=== PATIENT | female | born 2000 | race Two or more races ===

== ENCOUNTER 2022-01-20 22:52 | Emergency (ER) | payer SELFPAY ==
[~2022-01-20] VITALS: Ht 157.5 cm; Wt 54.0 kg
--- NOTE | 2022-01-20 23:21 | PHYS DOC ---
Past Medical History Past Medical History: No Pertinent History Past Surgical History: No Surgical History Smoking Status: Never Smoker Alcohol Use: None General Adult EDM: Chief Complaint: VAGINAL BLEEDING HPI: HPI: 21-year-old female, no significant past medical/surgical/allergy history, currently 4 months , G1, P0, presents with 1 day of pelvic cramping as well as vaginal spotting. No trauma. Denies any other complaints. No fever, chills, nausea, vomiting, chest pain, shortness of breath. No back pain. No dysuria. Normal BMs. Review of Systems: Review of Systems: Constitutional: Denies fever or chills. [] Eyes: Denies change in visual acuity. [] HENT: Denies nasal congestion or sore throat. [] Respiratory: Denies cough or shortness of breath. [] Cardiovascular: Denies chest pain or edema. [] GI: Denies abdominal pain, nausea, vomiting, bloody stools or diarrhea. [] : +vaginal spotting, Denies dysuria. [] Musculoskeletal: Denies back pain or joint pain. [] Integument: Denies rash. [] Neurologic: Denies headache, focal weakness or sensory changes. [] Endocrine: Denies polyuria or polydipsia. [] Lymphatic: Denies swollen glands. [] Psychiatric: Denies depression or anxiety. [] Heart Score: C/O Chest Pain: No Risk Factors: Risk Factors: DM, Current or recent (<one month) smoker, HTN, HLP, family history of CAD, obesity. Risk Scores: Score 0 - 3: 2.5% MACE over next 6 weeks - Discharge Home Score 4 - 6: 20.3% MACE over next 6 weeks - Admit for Clinical Observation Score 7 - 10: 72.7% MACE over next 6 weeks - Early Invasive Strategies Physical Exam: PE: Constitutional: Well developed, well nourished, no acute distress, non-toxic appearance. [] HENT: Normocephalic, atraumatic, bilateral external ears normal, oropharynx moist, no oral exudates, nose normal. [] Eyes: PERRLA, EOMI, conjunctiva normal, no discharge. [] Neck: Normal range of motion, no tenderness, supple, no stridor. [] Cardiovascular:Heart rate regular rhythm, no murmur [] Lungs & Thorax: Bilateral breath sounds clear to auscultation [] Abdomen: Bowel sounds normal, soft, no tenderness, no masses, no pulsatile masses. [] Skin: Warm, dry, no erythema, no rash. [] Back: No tenderness, no CVA tenderness. [] Extremities: No tenderness, no cyanosis, no clubbing, ROM intact, no edema. [] Neurologic: Alert and oriented X 3, normal motor function, normal sensory function, no focal deficits noted. [] Psychologic: Affect normal, judgement normal, mood normal. [] Current Patient Data: Vital Signs: Vital Signs Date Time Temp Pulse Resp B/P (MAP) Pulse Ox O2 Delivery O2 Flow Rate FiO2 01/20/22 23:06 98.0 72 18 124/87 (99) 100 Room Air 98.0 EKG: EKG: [] Radiology/Procedures: Radiology/Procedures: [] Course & Med Decision Making: Course & Med Decision Making Pertinent Labs and Imaging studies reviewed. (See chart for details) Additional Social History: PMD from non-affiliated facility. Patient Lives at home. Family History: Non-pertinent to today's complaint. Nursing Notes Reviewed Previous Medical Records requested via [facility] Web: Reviewed by me. EMERGENT LABS AND DIAGNOSTIC STUDIES: Results were reviewed and interpreted by me as below PROCEDURE: OB LIMITED IMPRESSION: 1. Single live anterior at 18 weeks 4 days gestational age by LMP has appropriate size by ultrasound. 2. No abnormality identified. A short-term follow-up study could be performed if clinically indicated. EMERGENCY DEPARTMENT COURSE/ MEDICAL DECISION MAKING: The patient was placed on a cardiac rn, continuous pulse oximetry and was given supplemental oxygen. I examined the patient, evaluated and addressed patient's chief complaint. Found to have live IUP ~18 weeks. Labs largely unremarkable. Vitals wnl. Well appearing. Abd soft NTND. On re-assessment, patient feels much better. Stable for dc home with routine pmd/OBGYN scheduled f/u. Strict return precautions given. The patient understands that todays Emergency Department evaluation does not re present a comprehensive medical workup, and it is impossible to diagnose all possible illnesses from a single Emergency Department visit. The patient verbalized understanding that it is absolutely necessary to have follow-up with regular primary care physician within 1-2 days for more detailed workup and continued exam. I explained the findings and plan to the patient, who expressed verbal understanding and agreed with plan for discharge and follow up. The patient was given after care instructions and welcomed to return to the ED for re-evaluation in 8-12 hours, especially for any new or worsening symptoms. Patient's blood pressure was elevated (>120/80) but appears stable without evidence of end organ damage, malignant hypertension, hypertensive emergency or urgency. The patient was counseled about the risks of hypertension and urged to pursue outpatient monitoring and therapy within a week with their primary care physician. The patient was stable at the time of discharge. DIAGNOSTIC IMPRESSION: 1. Vaginal bleeding in 2nd trimester DISPOSITION: Disposition: Discharge Home. Condition: Improved Follow-Up: PMD, OBGYN Prescriptions: None Return to the Emergency Department for new or worsening symptoms. Dragon Disclaimer: Chela Disclaimer: This electronic medical record was generated, in whole or in part, using a voice recognition dictation system. Departure Departure Impression: Primary Impression: Second trimester bleeding Additional Impressions: Vaginal spotting Second trimester Disposition: HOME / SELF CARE / HOMELESS Condition: LORE ADAME MD January 20, 2022 23:21
[2022-01-20 23:52] LABS: BASO % 1 % (0-3); EOS # 0.2 x10^3/uL (0.0-0.7); EOS % 2 % (0-3); HEMATOCRIT 33.8 % (36.0-47.0); HEMOGLOBIN 11.4 g/dL (12.0-15.5); LYMPH # 2.2 x10^3/uL (1.0-4.8); LYMPH % 25 % (24-48); MEAN CORPUSCULAR HEMOGLOBIN 28 pg (25-35); MEAN CORPUSCULAR HGB CONC 34 g/dL (31-37); MEAN CORPUSCULAR VOLUME 82 fL (79-100); MONO # 0.4 x10^3/uL (0.0-1.1); MONO % 5 % (0-9); NEUT % 68 % (31-73); PLATELET COUNT 244 x10^3/uL (140-400); RED BLOOD COUNT 4.12 x10^6/uL (3.50-5.40); RED CELL DISTRIBUTION WIDTH 13.4 % (11.5-14.5); WHITE BLOOD COUNT 8.9 x10^3/uL (4.0-11.0)
[2022-01-21 00:01] LABS: PROTHROMBIN TIME PATIENT 13.5 SEC (11.7-14.0)
[2022-01-21 00:04] LABS: CALCIUM 8.8 mg/dL (8.5-10.1); CREATININE 0.5 mg/dL (0.6-1.0); GFR 158.9; POTASSIUM 3.2 mmol/L (3.5-5.1)
[2022-01-21 00:10] LABS: ALBUMIN/GLOBULIN RATIO 0.8 (1.0-1.7); TOTAL BILIRUBIN 0.3 mg/dL (0.2-1.0); TOTAL PROTEIN 6.8 g/dL (6.4-8.2)
--- NOTE | 2022-01-21 00:49 | RAD ---
OB ultrasound Limited HISTORY: and vaginal spotting Sonographic examination of was performed and multiple static images were obtained. There is a single live intrauterine pre and see. The heart beat is confirmed at 128 bpm. The stomach and bladder appear normal. There is a posterior placenta. The amniotic fluid volume appears normal. There is a cephalic position. The LMP of September 13, 2021 corresponds with a 18 week 4 day gestational age and estimated date of co nfinement of June 20, 2022 The estimated size by ultrasound is 18 weeks 3 days which has an enhancement of the thyroid June [id number]. Measurements are as follows: BPD 3.95 cm 18 weeks 0 days. Head circumference 14.9 cm 8 weeks 0 days Dose: 13.2 cm 18 weeks 6 days. Femur length 2.8 cm 18 weeks 4 days The isthmus size is 9 ounces +/- 1 ounce. IMPRESSION: 1. Single live anterior at 18 weeks 4 days gestational age by LMP has appropriate size by u ltrasound. 2. No abnormality identified. A short-term follow-up study could be performed if clinically indicated . Electronically signed by: Franklin Kimbrough III, MD (01/21/2022 12:46 AM) [facility]
[2022-01-21 01:33] VITALS: BP 93/51
[2022-01-21] MEDS: POTASSIUM CHLORIDE 20 MEQ TABLET.ER. PO ONE (01:55)
== END 2022-01-21 02:01 | disposition home or self-care (01) ==
LOC: ER 22:52
DX: O46.92 Antepartum hemorrhage, unspecified, second trimester (principal); Z3A.18 18 weeks gestation of pregnancy
CPT/HCPCS: 36415; 76815; 80053; 84702; 85025; 85610; 85730; 86850; 86900; 86901; 99285-25